=== PATIENT | female | born 1950 | race Caucasian/White ===

== ENCOUNTER 2016-05-01 09:25 | Day surgery (SDC) | payer OTHER ==
[~2016-05-01 09:25] MED LIST: ceFAZolin 2 GM/DEXTROSE 100 ML IV ONE
[2016-05-01] MEDS ORDERED: BUPIVACAINE/EPI 0.5% 30 ML SDV ONE (10:05)
[2016-05-01] MEDS ORDERED: SODIUM BICARBONATE 10 MEQ/10 ML SYR IVP ONE (10:16)
[2016-05-01] MEDS ORDERED: LIDOCAINE 1% 30 ML SDV ONE (10:16)
[2016-05-01] MEDS ORDERED: CEFAZOLIN 2 GM/DEXTROSE/100 ML BAG IV ONE (10:20)
[2016-05-01] MEDS ORDERED: LR 1,000 ML IV ONE (10:35)
[2016-05-01] MEDS ORDERED: LIDOCAINE 1% 5 ML SDV ID PRN (10:35)
[2016-05-01] MEDS ORDERED: PROPOFOL 200 MG/20 ML VIAL ONE (10:40)
[2016-05-01] MEDS ORDERED: DEXAMETHASONE 4 MG/ML VIAL ONE (10:40)
[2016-05-01] MEDS ORDERED: fentaNYL 250 MCG/5 ML INJ ONE (10:40)
[2016-05-01] MEDS ORDERED: ONDANSETRON 4 MG/2 ML VIAL ONE (10:40)
[2016-05-01] MEDS ORDERED: ROCURONIUM 50 MG/5 ML VIAL ONE (10:40)
[2016-05-01] MEDS ORDERED: MIDAZOLAM 2 MG/2 ML VIAL ONE (10:50)
[2016-05-01] MEDS ORDERED: NEOSTIGMINE METHYLSULFATE 5 MG/5 ML SYR ONE (11:31)
[2016-05-01] MEDS ORDERED: GLYCOPYRROLATE 0.2 MG/1 ML VIAL ONE (11:31)
[2016-05-01] MEDS ORDERED: SKIN ADHESIVE (DERMABOND) 1 EACH TP ONE ×2 (11:52→11:58)
--- NOTE | 2016-05-01 12:15 | GOP ---
[f rep st] OPERATIVE REPORT DATE OF OPERATION: SURGEON: Rut Gonzalez MD PREOPERATIVE DIAGNOSIS: Left breast cancer. POSTOPERATIVE DIAGNOSIS: Left breast cancer. PROCEDURE PERFORMED: Re-excision of anterior margin of the left breast. FINDINGS: Approximately 30 cc of serosanguineous fluid in the lumpectomy cavity. SPECIMENS: Left breast anterior margin. ESTIMATED BLOOD LOSS: Estimated new blood loss less than 5 mL. INDICATIONS: The patient is a 66-year-old woman with a left breast cancer who was found to have 1.2 mm anterior margin to the DCIS. She desired re-excision of margins for possible partial breast irrad iation therapy. DESCRIPTION OF PROCEDURE: After informed consent was obtained and preoperative antibiotics were admi nistered, the patient was taken to the operating room, placed in a supine position. SCDs were placed to bilateral lower extremities. General anesthesia was administered. She was prepped and draped in a sterile fashion. After an appropriate surgical pause, local anesthetic was injected in a circumar eolar fashion around the prior incision and the circumareolar incision was excised in an elliptical f ashion using a 15 blade. About 30 cc of old serosanguineous fluid was suctioned from the lumpectomy cavity. Additional anterior breast tissue was excised and marked with the paint kit prior to sending this to Pathology for review. Hemostasis was achieved using Bovie electrocautery. The breast tissu e was reapproximated using 3-0 Vicryl suture. The skin was closed in 2 layers using 4-0 Monocryl sut ure. Mastisol, Steri-Strips, and a dry dressing were placed. Prior to skin closure, note 3 addition al gold fiducials were placed to louis the lumpectomy cavity. Once the patient is awakened from general anesthesia, she will be extubated and taken to the post ane sthesia recovery unit. /[id number]/MODL
[2016-05-01] MEDS ORDERED: HYDROCODONE/APAP 5/325 TAB ONE (13:15)
[2016-05-01] MEDS ORDERED: HYDROCODONE/APAP 5/325 TAB PO PRN (13:18)
== END 2016-05-01 14:51 | disposition home or self-care (01) ==
LOC: FSGY 09:25
PROVIDERS: ATTEND Surgery
PROC: 0HBU0ZX Excision of Left Breast, Open Approach, Diagnostic (ICD-10-PCS; principal; 2016-05-01 10:45)
DX: C50.212 Malignant neoplasm of upper-inner quadrant of left female breast (principal); Z88.2 Allergy status to sulfonamides
CPT/HCPCS: J0690; J1100; J2250; J2405; J2704; J2710; J3010

== ENCOUNTER → 2016-07-25 | Outpatient (CLI) | payer OTHER | LOC: BMCIMAGING 12:31 | PROVIDERS: ATTEND Internal Medicine | DX: R22.42 Localized swelling, mass and lump, left lower limb (principal); Z85.3 Personal history of malignant neoplasm of breast ==

== ENCOUNTER → 2016-11-12 | Outpatient (CLI) | payer OTHER, MEDICARE | LOC: BMCIMAGING 13:01 | PROVIDERS: ATTEND Internal Medicine | DX: R91.8 Other nonspecific abnormal finding of lung field (principal); R91.1 Solitary pulmonary nodule; R53.83 Other fatigue ==

== ENCOUNTER → 2016-11-13 | Outpatient (CLI) | payer OTHER, MEDICARE ==
[~2016-11-13] MED LIST changes: +IOPAMIDOL (ISOVUE-300) 100 ML BTL ONE; -ceFAZolin 2 GM/DEXTROSE 100 ML IV ONE
== END ==
LOC: FIMAGING 10:54
PROVIDERS: ATTEND Internal Medicine
DX: R91.8 Other nonspecific abnormal finding of lung field (principal); J18.9 Pneumonia, unspecified organism
CPT/HCPCS: 71260; Q9967

== ENCOUNTER → 2016-12-02 | Outpatient (CLI) | payer OTHER, MEDICARE | LOC: FIMAGING 09:40 | PROVIDERS: ATTEND Internal Medicine Hematology & Oncology | DX: N63 Unspecified lump in breast (principal); Z85.3 Personal history of malignant neoplasm of breast; Z17.0 Estrogen receptor positive status [ER+]; Z92.3 Personal history of irradiation | CPT/HCPCS: G0202; G0204 ==

== ENCOUNTER → 2016-12-26 | Outpatient (CLI) | payer OTHER, MEDICARE | LOC: BMCIMAGING 15:24 | PROVIDERS: ATTEND Internal Medicine | DX: J18.9 Pneumonia, unspecified organism (principal); Z85.3 Personal history of malignant neoplasm of breast ==

== ENCOUNTER → 2017-01-08 | Outpatient (CLI) | payer OTHER, MEDICARE | LOC: BMCIMAGING 13:49 | PROVIDERS: ATTEND Internal Medicine | DX: R91.8 Other nonspecific abnormal finding of lung field (principal); R05 Cough ==

== ENCOUNTER 2017-01-10 13:10 | Inpatient (IN) | payer OTHER, MEDICARE ==
[2017-01-10 14:33] LABS: % IMMATURE GRANULYOCYTES 0.6 % (0.0-1.1); ABSOLUTE IMMATURE GRANULOCYTES 0.08 10^3/uL (0.00-0.10); ADD DIFF? NO; ADD MORPH? NO; ADD SCAN? NO; ATYPICAL LYMPHOCYTE FLAG 0 (0-99); FRAGMENT RBC FLAG 0 (0-99); HEMATOCRIT 38.5 % (38.0-47.0); HEMOGLOBIN 12.3 g/dL (12.6-16.3); LEFT SHIFT FLG 0 (0-99); LIPEMIA HEMOLYSIS FLAG 80 (0-99); MEAN CELL HEMOGLOBIN 26.7 pg (27.9-34.1); MEAN CELL HEMOGLOBIN CONCENTR. 31.9 g/dL (32.4-36.7); MEAN CELL VOLUME 83.5 fL (81.5-99.8); MEAN PLATELET VOLUME 8.8 fL (8.7-11.7); PLATELET CLUMPS FLAG 20 (0-99); PLATELET COUNT 474 10^3/uL (150-400); RED BLOOD CELL COUNT 4.61 10^6/uL (4.18-5.33); RED CELL DISTRIBUTION WIDTH 14.4 % (11.5-15.2)
[2017-01-10 14:48] LABS: ANION GAP 14 mEq/L (8-16); BILIRUBIN,TOTAL 1.5 mg/dL (0.1-1.4); CARBON DIOXIDE 22 mEq/l (22-31); CHLORIDE 97 mEq/L (97-110); CREATININE 0.9 mg/dL (0.6-1.0); GLOMERULAR FILTRATION RATE > 60; GLUCOSE 110 mg/dL (70-100); POTASSIUM 3.9 mEq/L (3.5-5.2); SODIUM 133 mEq/L (134-144)
[2017-01-10 14:49] LABS: INR 1.11 (0.83-1.16); PROTIME(PATIENT) 14.2 SEC (12.0-15.0)
[2017-01-10 14:56] LABS: APTT 28.7 SEC (23.0-38.0)
--- NOTE | 2017-01-10 15:03 | EDPHY ---
H & P Smoking Status: Never smoked Time Seen by Provider: 01/10/17 14:02 HPI/ROS: CHIEF COMPLAINT: A worsening pneumonia, continued fever HISTORY OF PRESENT ILLNESS: This 66-year-old woman was treated with antibiotics for sinusitis at the end of September. She was treated twice in October with oral antibiotics for pneumonia and received 5 day course of levofloxacin over Labor Day for continued symptoms. She presents today with continued intermittent fever and elevated temperature, sore throat 2 days ago, vomiting 2 days ago with some nausea today. She still has a little nonproductive cough, and worsening shortness of breath especially at night. Not associated with chest pain. No leg swelling. Symptoms moderate. REVIEW OF SYSTEMS: Eye: no change in vision ENT: No sore throat now, see HPI Cardiac: no chest pain or syncope Pulmonary: HPI Abdomen: no vomiting, diarrhea, abdominal pain Musculoskeletal: no back pain Skin: no rash Neuro: no headache Constitutional: Fever and chills and no recent foreign travel to developing country. : no urinary symptoms A comprehensive 10 point review of systems is otherwise negative aside from elements mentioned in the history of present illness. PAST MEDICAL HISTORY: Denies previous tuberculosis. 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 No IV drugs General Appearance: Alert and conversant, cooperative. Eyes: No scleral icterus. ENT, Mouth: Normal mucous membranes. Respiratory: Decreased sounds bilaterally with scattered crackles. Speaks in full sentences. Cardiovascular: Regular rate and rhythm. No murmur. Gastrointestinal: Abdomen is soft and non tender. Neurological: Alert and oriented x3. Normally conversant. Face symmetric, normal movement and sensation in all extremities. Skin: Warm and dry, no rashes. Musculoskeletal: No peripheral edema and no joint swelling. Psychiatric: Not agitated. Emergency Department course/MDM: Chest x-ray reviewed from 01/08/2017 shows bilateral pulmonary infiltrates. She says she lost about 20 lb this calendar year but she was attempting to lose weight. She had a PPD placed 2 years ago which was negative. 1415: The D-dimer 3.4, CT scan discussed and consented to evaluate for any pulmonary embolism or other intrapulmonary abnormality to explain multi lobar infiltrates. Ceftriaxone 1g and Azithromycin 500mg IV. Admission for worsening pulmonary infiltrates and symptoms having failed multiple courses of outpatient antibiotics. Normal saline IV 1 L. Patient has sepsis criteria with elevated white blood cell count and tachycardia but does not have severe sepsis or septic shock. Dr. Joy will followup on CTA. (Lupillo Pruitt) Constitutional: Initial Vital Signs Temperature (C) 37.1 C 01/10/17 13:21 Heart Rate 110 H 01/10/17 13:21 Respiratory Rate 15 01/10/17 13:21 Blood Pressure 160/79 H 01/10/17 13:21 O2 Sat (%) 93 01/10/17 13:21 O2 Delivery Mode Room Air Allergies/Adverse Reactions: ceftriaxone [From Rocephin] Allergy (Verified 01/10/17 16:10) nickel Allergy (Verified 04/30/16 17:21) pollen extracts Allergy (Verified 04/30/16 17:21) Sulfa (Sulfonamide Antibiotics) Allergy (Verified 04/30/16 17:21) Swelling/neck,face,throat Home Medications: Medication Instructions Recorded Albuterol [Proventil Inhaler HFA 1 - 2 puffs IH Q4H PRN 01/10/17 (*)] Calcium Carbonate/Vitamin D3 1 each PO BID 01/10/17 [Calcium 500 + Vit D Caplet] Exemestane [Aromasin 25 MG (RX)] 25 mg PO DAILY8 01/10/17 Ibuprofen [Motrin (*)] 200 mg PO Q4-6PRN PRN 01/10/17 Medical Decision Making Consult/Admit Bed Type: [place] [id number] - Diagnostics Imaging Results: Imaging Impressions Chest/Thorax CTA 01/10/17 15:12 Impression: 1. No evidence of thrombopulmonary embolic disease. 2. Waxing and waning bilateral airspace consolidation. Differential diagnosis includes recurrent aspiration, inflammatory process such as cryptogenic organizing pneumonia or eosinophilic pneumonia, and drug reaction. Differential diagnosis includes bland bronchopneumonia. 3. Decreased size of probably benign reactive AP window lymph nodes since October 2016. Findings discussed with Emergency Department physician, Dr. Rafael Joy on , 1603 hours. Differential Diagnosis: Differential considered for continued intermittent fevers including but not limited to pneumonia, pulmonary embolus, tuberculosis, drug reaction, UTI. (Lupillo Pruitt) Other Provider: I was notified at approximately 4:20pm that the patient was having an apparent reaction to her Rocephin. Her CT was thankfully negative for PE. She was flushed, tachy and developed an increased oxygen requirement. She was treated with IV benadryl ,solumedrol and pepcid, and Rocephin was discontinued. I called and spoke with the hospitalist, Dr. Alonzo, to notify her of this change in condition. She had a bed assigned already, but we held her in the ED for an additional hour or so to stabilize. On re-eval, she is comfortable, no longer flushed, and HR and O2 have normalized. I think she is safe for transport to the floor. (Rafael Joy) - Data Points Laboratory Results: Laboratory Results 01/10/17 14:20 01/10/17 14:20 01/10/17 01/10/17 01/10/17 14:20 14:20 14:20 WBC 12.94 10^3/uL H 10^3/uL (3.80-9.50) RBC 4.61 10^6/uL 10^6/uL (4.18-5.33) Hgb 12.3 g/dL L g/dL (12.6-16.3) Hct 38.5 % % (38.0-47.0) MCV 83.5 fL fL (81.5-99.8) MCH 26.7 pg L pg (27.9-34.1) MCHC 31.9 g/dL L g/dL (32.4-36.7) RDW 14.4 % % (11.5-15.2) Plt Count 474 10^3/uL H 10^3/uL (150-400) MPV 8.8 fL fL (8.7-11.7) Neut % (Auto) 84.1 % H % (39.3-74.2) Lymph % (Auto) 7.2 % L % (15.0-45.0) [place] % (Auto) 5.3 % % (4.5-13.0) Eos % (Auto) 2.4 % % (0.6-7.6) Baso % (Auto) 0.4 % % (0.3-1.7) Nucleat RBC Rel Count 0.0 % % (0.0-0.2) Absolute Neuts (auto) 10.89 10^3/uL H 10^3/uL (1.70-6.50) Absolute Lymphs (auto) 0.93 10^3/uL L 10^3/uL (1.00-3.00) Absolute Monos (auto) 0.68 10^3/uL 10^3/uL (0.30-0.80) Absolute Eos (auto) 0.31 10^3/uL 10^3/uL (0.03-0.40) Absolute Basos (auto) 0.05 10^3/uL 10^3/uL (0.02-0.10) Absolute Nucleated RBC 0.00 10^3/uL 10^3/uL (0-0.01) Immature Gran % 0.6 % % (0.0-1.1) Immature Gran # 0.08 10^3/uL 10^3/uL (0.00-0.10) PT 14.2 SEC SEC (12.0-15.0) INR 1.11 (0.83-1.16) APTT 28.7 SEC SEC (23.0-38.0) D-Dimer 3.41 ug/mLFEU H ug/mLFEU (0.00-0.50) VBG Lactic Acid Sodium 133 mEq/L L mEq/L (134-144) Potassium 3.9 mEq/L mEq/L (3.5-5.2) Chloride 97 mEq/L mEq/L (97-110) Carbon Dioxide 22 mEq/l mEq/l (22-31) Anion Gap 14 mEq/L mEq/L (8-16) BUN 14 mg/dL mg/dL (7-23) Creatinine 0.9 mg/dL mg/dL (0.6-1.0) Estimated GFR > 60 Glucose 110 mg/dL H mg/dL (70-100) Calcium 10.0 mg/dL mg/dL (8.5-10.4) Total Bilirubin 1.5 mg/dL H mg/dL (0.1-1.4) 01/10/17 14:20 WBC RBC Hgb Hct MCV MCH MCHC RDW Plt Count MPV Neut % (Auto) Lymph % (Auto) [place] % (Auto) Eos % (Auto) Baso % (Auto) Nucleat RBC Rel Count Absolute Neuts (auto) Absolute Lymphs (auto) Absolute Monos (auto) Absolute Eos (auto) Absolute Basos (auto) Absolute Nucleated RBC Immature Gran % Immature Gran # PT INR APTT D-Dimer VBG Lactic Acid 1.4 mmol/L mmol/L (0.7-2.1) Sodium Potassium Chloride Carbon Dioxide Anion Gap BUN Creatinine Estimated GFR Glucose Calcium Total Bilirubin Medications Given: Discontinued Medications Diphenhydramine HCl (Benadryl Injection) 25 mg IVP EDNOW ONE Stop: 01/10/17 16:08 Last Admin: 01/10/17 16:09 Dose: 25 mg Diphenhydramine HCl (Benadryl Injection) 25 mg IVP ONCE ONE Stop: 01/10/17 16:36 Last Admin: 01/10/17 16:36 Dose: 25 mg Famotidine (Pepcid) 40 mg IVP EDNOW ONE Stop: 01/10/17 16:35 Last Admin: 01/10/17 16:36 Dose: 40 mg Ceftriaxone Sodium/Dextrose (Rocephin 1 Gm (Premix)) 50 mls @ 100 mls/hr IV EDNOW ONE PRN Reason: Protocol Stop: 01/10/17 15:46 Last Admin: 01/10/17 15:51 Dose: 50 mls Sodium Chloride (Ns) 1,000 mls @ 0 mls/hr IV EDNOW ONE; Wide Open PRN Reason: Protocol Stop: 01/10/17 15:34 Last Admin: 01/10/17 15:51 Dose: 1,000 mls Methylprednisolone Sodium Succinate (Solu-Medrol) 125 mg IVP ONCE ONE Stop: 01/10/17 16:35 Last Admin: 01/10/17 16:36 Dose: 125 mg Departure - Departure Disposition: [facility] Acute Clinical Impression: Pneumonia Qualifiers: Pneumonia type: due to unspecified organism Laterality: bilateral Lung location : unspecified part of lung Qualified Code(s): J18.9 - Pneumonia, unspecified organism Condition: Good
[2017-01-10] MEDS ORDERED: AZITHROMYCIN IV 500 MG in D5W 250 ML IV ONE (15:17)
[2017-01-10] MEDS ORDERED: IOPAMIDOL (ISOVUE 370) 100 ML BTL IV ONE (15:18)
[2017-01-10] MEDS ORDERED: NS 1,000 ML IV ONE (15:33)
[2017-01-10] MEDS ORDERED: FAMOTIDINE 20 MG/2 ML SDV ONE (16:30)
[2017-01-10] MEDS ORDERED: methylPREDNISolone SOD SUCC 125 MG/2 ML VIAL ONE (16:31)
[2017-01-10] MEDS ORDERED: methylPREDNISolone SOD SUCC 125 MG/2 ML VIAL IVP ONE (16:34)
[2017-01-10] MEDS ORDERED: FAMOTIDINE 20 MG/2 ML SDV IVP ONE (16:34)
[2017-01-10] MEDS ORDERED: ONDANSETRON 4 MG/2 ML VIAL IVP PRN (18:08)
[2017-01-10] MEDS ORDERED: ACETAMINOPHEN 325 MG TAB PO PRN (18:08)
[2017-01-10] MEDS ORDERED: ONDANSETRON DISINTEGRATING 4 MG TAB PO PRN (18:08)
[2017-01-10] MEDS ORDERED: oxyCODONE IR 5 MG TAB PO PRN (18:08)
[2017-01-10] MEDS ORDERED: ALBUTEROL 3 ML DEYVIAL IH PRN (18:08)
[2017-01-10] MEDS ORDERED: IBUPROFEN 200 MG TAB PO PRN (18:11)
[2017-01-10] MEDS: CALCIUM CARB W/VIT D 500 MG TAB PO SCH (20:00)
[2017-01-10] MEDS: IPRATROPIUM/ALBUTEROL 3 ML DEYVIAL IH SCH (21:12)
--- NOTE | 2017-01-11 00:12 | GHP ---
[f rep st] HISTORY AND PHYSICAL DATE OF ADMISSION: 01/10/2017 CHIEF COMPLAINT: Shortness of breath and cough. HISTORY OF PRESENT ILLNESS: This is a 66-year-old female with past medical history of breast cancer, who presents with complaints of shortness of breath, cough, and fever. She notes she has been treat ed 3 times since October with antibiotics for presumed pneumonia. She has had multiple chest x-rays whi ch have been notable for bilateral consolidations which have been waxing and waning on recurrent imag ing. Per patient, she has had times when she has felt well but has never felt completely back to [facility] since October. She has been treated with levofloxacin and Augmentin as an outpatient. She states she did not tolerate levofloxacin due to some tendon issue she developed. Here in the ER today she was given a dose of ceftriaxone and shortly thereafter developed some sort of presumably allergic res ponse with patient noted to be flushed, tachy, requiring increased O2, and tachycardic. At the time of my evaluation, patient is feeling relatively back to her baseline. PAST MEDICAL HISTORY: Includes: 1. Breast cancer. 2. Pneumonia as per History of Present Illness. PAST SURGICAL HISTORY: Lumpectomy. FAMILY HISTORY: Reviewed and noncontributory. SOCIAL HISTORY: The patient lives independently. She is generally very active at baseline. States she usually walks 5 miles per day. She is a nonsmoker. Rare drinker. REVIEW OF SYSTEMS: A 10-point review of systems obtained negative except as per History of Present I llness. HOME MEDICATIONS: 1. Ibuprofen. 2. Aromasin. 3. Calcium. 4. Albuterol. ALLERGIES: Sulfa and now ceftriaxone. PHYSICAL EXAM: VITAL SIGNS: BP 123/78, heart rate 86, respiratory rate 16, O2 SATs 95% on 2 L. Tem perature is 36.7. GENERAL APPEARANCE: Well-developed/well-nourished female. She is awake and alert . She is in no acute distress. EYES: Anicteric. HENT: Oropharynx clear. CARDIOVASCULAR: Regula r rate and rhythm, no MRG. PULMONARY: There are scattered rhonchi and wheezes bilaterally with norm al work of breathing. ABDOMEN: Soft, nontender, nondistended. EXTREMITIES: No clubbing, cyanosis, or edema. SKIN: Warm dry well perfused. NEURO/PSYCH: Oriented and appropriate. CLINICAL DATA: Labs reviewed and notable for a white blood cell count of 12.94, hematocrit of 38, pl atelets of 474. D-dimer is 3.41. Lactic acid 1.4. Chemistry notable for sodium of 133. Chest CT angiogram personally reviewed and interpreted shows no PE. There is waxing and waning bilat eral airspace consolidation consistent with possible aspiration versus inflammatory process such as c ryptogenic organizing pneumonia or eosinophilic pneumonia and decreased size of lymph nodes that were noticed back in October. ASSESSMENT AND PLAN: This is a 66-year-old female with a past medical history of breast cancer, now being admitted for presumed recurrent pneumonia. 1. Pneumonia. Again, this is been recurrent since October with imaging showing waxing and waning bilat eral infiltrates. Some areas are noted to be improved from prior, others worse from prior. Definite ly atypical in appearance. Query recurrent aspiration though patient denies any knowledge of aspirat ing. Plan will be to continue the azithromycin, ceftriaxone has been stopped due to presumed allergi c response. We will obtain a respiratory pathogen panel. Will ask CUSTOMS COMPLIANCE MANAGER to evaluate for signs of aspi ration. Will also consult Infectious Disease for help given her recurrent issues and sort of indolen t process with this. She may require pulmonary consultation and even bronchoscopy, but this perhaps could be arranged as an outpatient. 2. Acute hypoxic respiratory failure. The patient has been noted to be as low as 90% on room air wi th associated shortness of breath in the setting of above. She is saturating quite well now on low-f low supplemental O2. 3. History of breast cancer. Do not feel this is likely contributing to her acute presentation. Th ere is nothing to suggest malignancy contributing to her pulmonary process. Prominent lymph nodes no jay before have now decreased in size. 4. Allergic response to ceftriaxone. Again, this occurred in the emergency department and her sympt oms have completely resolved. Unclear if this was a true allergy versus adverse reaction, but regard less this will be listed as an allergy from now on. DISPOSITION: Observation status, especially less than 48 hour stay for evaluation and management of above. The patient is new to my care. Old records reviewed, summarized as per HPI and past medical history. Care plan reviewed with ER physician, including plans for treatment of presumed recurrent pneumonia . /[id number]/MODL
[2017-01-11] MEDS: IPRATROPIUM/ALBUTEROL 3 ML DEYVIAL IH SCH ×3 (06:10→17:20)
[2017-01-11 07:47] LABS: % IMMATURE GRANULYOCYTES 0.7 % (0.0-1.1); ABSOLUTE IMMATURE GRANULOCYTES 0.08 10^3/uL (0.00-0.10); ADD DIFF? NO; ADD MORPH? NO; ADD SCAN? NO; ATYPICAL LYMPHOCYTE FLAG 10 (0-99); FRAGMENT RBC FLAG 0 (0-99); HEMATOCRIT 35.1 % (38.0-47.0); HEMOGLOBIN 11.4 g/dL (12.6-16.3); LEFT SHIFT FLG 0 (0-99); LIPEMIA HEMOLYSIS FLAG 80 (0-99); MEAN CELL HEMOGLOBIN 27.1 pg (27.9-34.1); MEAN CELL HEMOGLOBIN CONCENTR. 32.5 g/dL (32.4-36.7); MEAN CELL VOLUME 83.4 fL (81.5-99.8); PLATELET CLUMPS FLAG 0 (0-99); PLATELET COUNT 468 10^3/uL (150-400); RED BLOOD CELL COUNT 4.21 10^6/uL (4.18-5.33); RED CELL DISTRIBUTION WIDTH 14.5 % (11.5-15.2)
[2017-01-11 08:00] LABS: ALANINE AMINOTRANSFERASE 78 IU/L (9-52); ALKALINE PHOSPHATASE 271 IU/L (38-126); ANION GAP 16 mEq/L (8-16); ASPARTATE AMINOTRANSFERASE 39 IU/L (14-46); BILIRUBIN,TOTAL 0.6 mg/dL (0.1-1.4); CALCIUM 9.5 mg/dL (8.5-10.4); CARBON DIOXIDE 19 mEq/l (22-31); CHLORIDE 104 mEq/L (97-110); CREATININE 0.7 mg/dL (0.6-1.0); GLOMERULAR FILTRATION RATE > 60; GLUCOSE 163 mg/dL (70-100); SODIUM 139 mEq/L (134-144); TOTAL PROTEIN 6.3 g/dL (6.3-8.2)
[2017-01-11] MEDS ORDERED: EXEMESTANE 25 MG TAB PO SCH (08:00)
[2017-01-11] MEDS: CALCIUM CARB W/VIT D 500 MG TAB PO SCH ×2 (08:44→20:02)
[2017-01-11] MEDS ORDERED: AZITHROMYCIN IV 500 MG in D5W 250 ML IV SCH (09:00)
[2017-01-11] MEDS ORDERED: ENOXAPARIN 40 MG/0.4 ML SYR SC SCH (09:00)
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
--- NOTE | 2017-01-11 13:37 | ASMTCMCOM ---
CM Note CM Note Notes: Pt's DC needs are TBD. Awaiting an ID consult. C/M will continue to follow. Date Signed: 01/11/2017 01:36 PM Electronically Signed By:Qing Melissa LCSW
--- NOTE | 2017-01-11 17:35 | HOSPPROG ---
Hospitalist Progress Note Assessment/Plan: * Waxing and waning pulmonary infiltrates -most c/w SENIOR CREDIT ANALYST or eosinophilic PNA -need bronch with biopsy - d/w Dr. Terry -extended infectious w/u per Dr Fish - abx stopped * Acute respiratory failure -stable on O2 * Ceftriaxone allergic rx - early anaphylaxis -s/p emergent tx in ER * Breast cancer -recent tx Subjective: No new complaints Objective: Vital Signs Temp Pulse Resp BP Pulse Ox 36.8 C 83 16 123/71 H 95 01/11/17 16:00 01/11/17 16:00 01/11/17 16:00 01/11/17 16:00 01/11/17 16:00 Microbiology 01/11/17 05:30 Respiratory Panel (PCR) - Final Nasal, Sinus - Swab No Organism Detected Laboratory Results 01/11/17 07:13 01/11/17 07:13 01/10/17 01/11/17 01/12/17 05:59 05:59 05:59 Intake Total 550 1030 Output Total 1050 Balance -500 1030 PT 14.2 SEC (12.0-15.0) 01/10/17 14:20 INR 1.11 (0.83-1.16) 01/10/17 14:20 CT chest - waxing and waning pulmonary infiltrates - Physical Exam Constitutional: no apparent distress, appears nourished, not in pain Cardiovascular: regular rate and rhythym, no murmur, rub, or gallop Respiratory: no respiratory distress, no rales or rhonchi, clear to auscultation Gastrointestinal: normoactive bowel sounds, soft, non-tender abdomen, no palpable masses Skin: no rashes or abrasions, no fluctuance, no induration Neurologic: AAOx3, sensation intact bilaterally Psychiatric: interacting appropriately, not anxious, not encephalopathic, thought process linear ICD10 Worksheet Patient Problems: Problems Problem Status Onset Pneumonia Acute
--- NOTE | 2017-01-11 17:43 | GCON ---
[f rep st] CONSULTATION PULMONARY/CRITICAL CARE DATE OF CONSULTATION: 01/11/2017 REFERRING PHYSICIAN: Antonella Marie MD ADDITIONAL REFERRING: Isabela Fish MD. REASON FOR REFERRAL: Evaluation and management of chronic pneumonia. HISTORY OF PRESENT ILLNESS: The patient is a 66-year-old woman with a history of breast cancer that was diagnosed in 2015. She denies any respiratory history until August of 2016, at which time she was e xposed to a sick contact and developed cold symptoms. This was followed by symptoms that were felt t o be due to sinusitis. Treated with an antibiotic. She then was subsequently diagnosed with pneumon ia in October and then given 2 weeks of antibiotics. She felt she improved with those, but was continui ng to have some shortness of breath. She then took a course of Levaquin, also with some improvement in her symptoms. Several days ago, she started to develop low-grade fevers to 101 as well as increas ing shortness of breath. A chest x-ray and laboratory evaluations suggested pneumonia, so she presen jay to the emergency department. She has been treated with ceftriaxone and azithromycin, but develop ed an allergic reaction to ceftriaxone, so that was stopped. She currently reports that her breathin g feels better since admission, but she has attributes that to the oxygen more so than the azithromyc in. PAST MEDICAL HISTORY: Breast cancer, diagnosed 9 months ago. She underwent surgery including a seco nd surgery to get better margins. She then underwent followup radiation. She was then placed on an aromatase inhibitor. MEDICATIONS: At the time of admission include exemestane, Proventil, and Motrin. ALLERGIES: Ceftriaxone, nickel, pollen, and sulfa. SOCIAL HISTORY: She grew up in [place] but has lived in [place] for over almost 40 years. She de nies exposure to animals recently, but did have an exposure to some and decaying animals in 2016 . FAMILY HISTORY: Unremarkable. REVIEW OF SYSTEMS: A 10-point review of systems adds nothing to the history of present illness. PHYSICAL EXAMINATION: GENERAL: The patient is awake, alert, in no acute distress. VITALS: Blood p ressure is 123/71 with a heart rate of 83. She is afebrile. Oxygen saturations are 95% on 2 L. WAYLON NT: Normocephalic and atraumatic. No icterus. NECK: No JVD. Trachea is midline. CHEST: She has bilateral rales. CARDIAC: Regular rate and rhythm without murmur. ABDOMEN: Soft, nontender. [place] el sounds are present. EXTREMITIES: No clubbing, cyanosis, or edema. NEURO: The patient is awake and alert. Cranial nerves grossly intact. She has no gross motor or sensory deficits. LABORATORY: White blood count 11.1. She has zero percent eosinophils. Hemoglobin is 11.4, platelet count is 468. INR is 1.1. Chemistry group is unremarkable. A CT scan of the chest shows bilateral patchy consolidation. Compared to a CT scan done on November 13, areas of consolidation seen on the jacqueline or CT scan have completely resolved and the currently seen areas are new. ASSESSMENT: Bilateral pneumonia. The patient has had symptoms and radiographic findings for approxi mately 2 months. These have persisted despite several courses of outpatient antibiotics. The migrat ory nature of these infiltrates makes noninfectious causes such as cryptogenic organizing pneumonia o r an eosinophilic pneumonia more likely. I had a long discussion with the patient and her re garding options, which could include getting more serologies to exclude some infectious causes and th en treating empirically with steroids, adding a BAL to the serologies, and then if that remains negat linda proceeding with an empiric course of steroids, or doing a bronchoscopy with BAL and biopsies in a n attempt to get a more conclusive diagnosis. I reviewed the risks and benefits of bronchoscopy, whi ch include pneumothorax and bleeding from the biopsies. It is also possible that we will not get a d efinitive diagnosis and we will have to proceed to video-assisted thoracoscopic surgery if a definiti ve diagnosis is to be pursued. I also reviewed the side effects, the risks and benefits of steroids, both as an empiric treatment and also as a more definitive treatment for a diagnosed noninfectious p neumonia. They understand and are willing to proceed with bronchoscopy with biopsies to try to get a more definitive diagnosis. RECOMMENDATIONS: N.p.oVijay grant for the bronchoscopy with biopsies and BAL tomorrow. Agree with hol ding antibiotics. /[id number]/MODL
[2017-01-11] MEDS ORDERED: ALBUTEROL IH PRN (20:13)
[2017-01-12] MEDS: EXEMESTANE 25 MG TAB PO SCH ×3 (08:06→15:41)
[2017-01-12] MEDS: CALCIUM CARB W/VIT D 500 MG TAB PO SCH ×3 (08:06→15:50)
[2017-01-12] MEDS ORDERED: MIDAZOLAM 2 MG/2 ML VIAL ONE (10:45)
[2017-01-12] MEDS ORDERED: BENZOCAINE UNIT DOSE SPRAY HURRICAINE MM ONE (10:45)
[2017-01-12] MEDS ORDERED: fentaNYL 100 MCG/2 ML INJ ONE (10:45)
[2017-01-12] MEDS ORDERED: EPINEPHrine 1 MG/10 ML SYR IVP ONE (10:45)
[2017-01-12] MEDS ORDERED: ALBUTEROL 3 ML DEYVIAL ONE (10:46)
[2017-01-12] MEDS ORDERED: LIDOCAINE 2% JELLY 5 ML TUBE ONE (10:46)
[2017-01-12] MEDS ORDERED: LIDOCAINE 1% 300 MG/30 ML SDV ONE ×2 (10:59→11:17)
--- NOTE | 2017-01-12 11:11 | PCMIDPN ---
Assessment/Plan: # Chronic PNA with migratory infiltrates failed multiple outpatient antibiotic regimens- most c/o COOP vs eosinophilic pneumonitis, BAL today with biopsy --may need home O2, notified case management --AFB, fungal, standard bacterial cx with bronch today likely followed by empiric steroids --ID to follow peripherally, no ID follow up needed --continue off antibiotics Subjective: patient feeling the same today Objective: Vital Signs Temp Pulse Resp BP Pulse Ox 36.6 C 70 16 144/79 H 95 01/12/17 08:09 01/12/17 08:09 01/12/17 08:09 01/12/17 08:09 01/12/17 08:09 Microbiology 01/11/17 05:30 Respiratory Panel (PCR) - Final Nasal, Sinus - Swab No Organism Detected Laboratory Results 01/11/17 07:13 01/11/17 07:13 01/11/17 01/12/17 01/13/17 05:59 05:59 05:59 Intake Total 550 1030 Output Total 1050 1150 Balance -500 -120 - Physical Exam General Appearance: WD/WN, alert, no apparent distress EENT: No thrush, No dry mucous membranes Respiratory: crackles, No accessory muscle use, No wheezing Neck: supple Cardiac/Chest: regular rate, rhythm, No systolic murmur Extremities: No pedal edema Skin: No rash Neuro/Psych: alert, oriented x 3, other (tearful) - Time Spent With Patient Time Spent with Patient: greater than 25 minutes (care coordination with Dr. Terry and Dr Solomon) Time Spent with Patient: Greater than 25 minutes spent on this patients care, greater than 50% of time spent counseling, educating, and coordinating care regarding the above mentioned plan. ICD10 Worksheet Patient Problems: Problems Problem Status Onset Pneumonia Acute
--- NOTE | 2017-01-12 12:37 | ASMTCMCOM ---
CM Note CM Note Notes: Case Management unable to give patient Pastor letter at 11:30. Patient had gone to get a bronc. will attempt after lunch. Date Signed: 01/12/2017 12:36 PM Electronically Signed By:Neha Hansen LCSW
--- NOTE | 2017-01-12 12:44 | PDINTPN ---
[facility] Progress Note Assessment/Plan: Assessment: Pneumonia: Chronic, migratory infiltrates. Evaluation for infectious causes negative to date. Serology is pending. Suspect cryptogenic organizing pneumonia or eosinophilic pneumonia. Breast cancer: Status post radiation and currently on aromatase inhibitor Plan: Bronch with BAL and TTLBx, then start PO steroids. 01/12/17 12:43 Subjective: Feels about the same, no new problems. Objective: Vital Signs Temp Pulse Resp BP Pulse Ox 36.6 C 80 26 H 118/70 93 01/12/17 11:43 01/12/17 11:43 01/12/17 12:21 01/12/17 12:21 01/12/17 12:21 Microbiology 01/11/17 05:30 Respiratory Panel (PCR) - Final Nasal, Sinus - Swab No Organism Detected Laboratory Results 01/11/17 07:13 01/11/17 07:13 01/11/17 01/12/17 01/13/17 05:59 05:59 05:59 Intake Total 550 1030 Output Total 1050 1150 Balance -500 -120 PT 14.2 SEC (12.0-15.0) 01/10/17 14:20 INR 1.11 (0.83-1.16) 01/10/17 14:20 Physical Exam - Physical Exam General Appearance: alert, no apparent distress EENT: normal ENT inspection Neck: normal inspection Respiratory: rales Cardiac/Chest: regular rate, rhythm, No edema Abdomen: normal bowel sounds, non-tender, soft Skin: normal color, warm/dry Extremities: normal inspection Neuro/Psych: alert, normal mood/affect, oriented x 3 ICD10 Worksheet Patient Problems: Problems Problem Status Onset Pneumonia Acute
[2017-01-12] MEDS: predniSONE 20 MG TAB PO SCH (13:27)
--- NOTE | 2017-01-12 14:32 | ASMTCMCOM ---
CM Note CM Note Notes: Spoke to patient and her . They were told by her family physician that she needed to go to the ER for treatment of her fever. In ER they were told that she would be admitted as an "In-Patient". Dr Solomon made her "in-patient" status as of this afternoon. Patient did sign the Pastor letter. Patient might need O2 at home. She will be discharged Friday. Date Signed: 01/12/2017 02:32 PM Electronically Signed By:Neha Hansen LCSW
--- NOTE | 2017-01-12 14:41 | BVPULMO ---
[facility] Surgical Services- Pulmonology Patient Name: Yulisa Arias Procedure Date: 01/12/2017 10:41 AM Patient Type: Inpatient Attending MD/ER Physician: Layton Terry MD Procedure: Bronchoscopy Indications: Unresolving bilateral infiltrates Providers: Layton Terry MD Medicines: Lidocaine 1% applied to cords 2 mL, Lidocaine 1% applied to the tracheobronchial tree 5 mL, Fentanyl 200 mcg IV, Midazolam 4 mg IV Complications: No immediate complications Procedure: After informed consent, a time out was performed. N95 masks were worn, and the procedure was done in a negative pressure room. The patient was given appropriate topical anesthesia and intravenous sedation. The fiberopic bronchoscope was passed via a bite block orally into the larynx and subsequently into the lower trachea bronchial tree. Throughout the procedure, the patient's blood pressure, pulse, and oxygen saturations were monitored continuously. The Bronchoscope (Video) was introduced through the mouth and advanced to the tracheobronchial tree of both lungs. The procedure was accomplished without difficulty. The patient tolerated the procedure well. Findings: Specific locations: The following were directly visualized, and are normal: larynx, vocal cord motion, trachea, cyndy, left mainstem bronchus, right mainstem bronchus, bronchus intermedius, left upper lobe including subsegments,left lower lobe including subsegments, right upper lobe including subsegments, right middle lobe including subsegments, right lower lober including subsegments. Transbronchial biopsies of an area of infiltration were performed in the posterior segment of the right upper lobe and in the superior segment of the right lower lobe using forceps and sent for histopathology examination. The procedure was guided by fluoroscopy. Biopsy of lung tissue was obtained. Four biopsy passes were performed. Four biopsy samples were obtained. There was a moderate amount of bleeding from the right upper lobe posterior segment which stopped after suction and observation for approximately 3 minutes. Washings were obtained and sent for cell count, bacterial culture, and fungal & AFB analysis and cell count and differential. The return was cloudy. Post Op Diagnosis: - Unresolving bilateral infiltrates - No specimens collected. Estimated Blood Loss: Estimated blood loss: 15 mL. Recommendation: - Return patient to [facility] for ongoing care. Layton Terry MD Layton Terry MD 01/12/2017 2:41:33 PM Number of Addenda: 0 Note Initiated On: 01/12/2017 10:41 AM [email or web address]
--- NOTE | 2017-01-12 16:37 | HOSPPROG ---
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 Terry -monitor cultures from bronch - continue off antibiotics * Acute respiratory failure -stable on O2 * Ceftriaxone allergic rx - early anaphylaxis -s/p emergent tx in ER * Breast cancer -continue Aromasin Dispo - home in am if doing okay Subjective: Feeling okay. Worried about reacting to prednisone as she has reacted poorly to so many meds in the past. Objective: Vital Signs Temp Pulse Resp BP Pulse Ox 36.5 C 87 16 113/69 92 01/12/17 15:51 01/12/17 15:51 01/12/17 15:51 01/12/17 15:51 01/12/17 15:51 Microbiology 01/12/17 12:00 Gram Stain - Final Lung Bilateral - Bronch [facility] Laboratory Results 01/11/17 07:13 01/11/17 07:13 01/11/17 01/12/17 01/13/17 05:59 05:59 05:59 Intake Total 550 1030 Output Total 1050 1150 Balance -500 -120 PT 14.2 SEC (12.0-15.0) 01/10/17 14:20 INR 1.11 (0.83-1.16) 01/10/17 14:20 d/w Dr. Fish - home in am if cultures from bronch okay CXR viewed, my personal interpretation is - patch bilateral infiltrates, no PTX - Physical Exam Constitutional: no apparent distress, appears nourished, not in pain Cardiovascular: regular rate and rhythym, no murmur, rub, or gallop Respiratory: no respiratory distress, no rales or rhonchi, clear to auscultation Gastrointestinal: normoactive bowel sounds, soft, non-tender abdomen, no palpable masses Skin: no rashes or abrasions, no fluctuance, no induration Neurologic: AAOx3, sensation intact bilaterally Psychiatric: interacting appropriately, not anxious, not encephalopathic, thought process linear ICD10 Worksheet Patient Problems: Problems Problem Status Onset Pneumonia Acute
[2017-01-13 05:32] LABS: % IMMATURE GRANULYOCYTES 0.5 % (0.0-1.1); ABSOLUTE IMMATURE GRANULOCYTES 0.06 10^3/uL (0.00-0.10); ADD DIFF? NO; ADD MORPH? NO; ADD SCAN? NO; ATYPICAL LYMPHOCYTE FLAG 10 (0-99); FRAGMENT RBC FLAG 0 (0-99); HEMATOCRIT 31.5 % (38.0-47.0); HEMOGLOBIN 9.8 g/dL (12.6-16.3); LEFT SHIFT FLG 0 (0-99); LIPEMIA HEMOLYSIS FLAG 80 (0-99); MEAN CELL HEMOGLOBIN 26.6 pg (27.9-34.1); MEAN CELL HEMOGLOBIN CONCENTR. 31.1 g/dL (32.4-36.7); MEAN CELL VOLUME 85.6 fL (81.5-99.8); MEAN PLATELET VOLUME 8.9 fL (8.7-11.7); PLATELET CLUMPS FLAG 20 (0-99); PLATELET COUNT 394 10^3/uL (150-400); RED BLOOD CELL COUNT 3.68 10^6/uL (4.18-5.33); RED CELL DISTRIBUTION WIDTH 14.5 % (11.5-15.2)
[2017-01-13 08:06] VITALS: RESP 18
[2017-01-13] MEDS: EXEMESTANE 25 MG TAB PO SCH (08:33)
[2017-01-13] MEDS: CALCIUM CARB W/VIT D 500 MG TAB PO SCH ×2 (08:34→08:37)
[2017-01-13] MEDS: predniSONE 20 MG TAB PO SCH (08:34)
[2017-01-13] MEDS ORDERED: VITAMIN D3 PO SCH (09:00)
[2017-01-13] MEDS ORDERED: CALCIUM CARBONATE PO SCH (09:00)
[2017-01-13 12:02] VITALS: BP 138/82; PULSE 61; TEMP 98.4; O2SAT 98
--- NOTE | 2017-01-13 13:45 | PDHOMEO2F ---
Home Oxygen Face to Face Home Orders: I certify that a physician or a nurse practitioner or physician's retail administrative assistant has had a [id number] encounter with this patient on the date of this order due to the diagnosis listed, which relates to the primary reason the patient requires home oxygen. Alternative treatments have been tried, or considered, and deemed ineffective. It is anticipated that supplemental oxygen will result in improvement with treatment. Home oxygen qualifying diagnosis: hypoxia, pneumonia SpO2 on room air (%): 88 Frequency of home oxygen needed: continuous Home oxygen liters per minute: 2 Home oxygen delivery device: nasal cannula Concentrator: Yes E-tanks for mobility and back up: Yes If ordering portable O2, is the patient mobile in the home?: Yes I certify that, based on these findings, the home oxygen is medically necessary for this patient for the following length of time. Length of time home oxygen needed: 1 month (perhaps longer depending upon eval with pulmonary medicine)
--- NOTE | 2017-01-13 22:00 | GDS ---
[f rep st] DISCHARGE SUMMARY SERVICE: [facility] hospitalist. CONSULTATIONS: 1. Infectious Disease. 2. Pulmonary medicine. PROCEDURES: 1. CT chest. 2. Chest x-ray. 3. Bronchoscopy. HISTORY AND PHYSICAL: Please see previously dictated note by Dr. Alonzo. ADMITTING DIAGNOSES: 1. Recurrent/chronic pneumonia. 2. Acute hypoxic respiratory failure. 3. History of breast cancer. 4. Allergic reaction to ceftriaxone. DISCHARGE DIAGNOSES: 1. Recurrent/chronic pneumonia. Possible cryptogenic organizing pneumonia versus eosinophilic pneum onia. 2. Acute hypoxic respiratory failure. 3. History of breast cancer. 4. Allergic reaction to ceftriaxone. HOSPITAL COURSE BY PROBLEM LIST: 1. Chronic recurrent pneumonia. She came into the emergency department for evaluation after multipl e courses of outpatient antibiotic treatments and ongoing issues with ongoing issues. CT scan was do ne to ensure no pulmonary embolism. Findings suggested cryptogenic organizing pneumonia versus eosin ophilic pneumonia. Infectious Disease and Pulmonary Medicine consults were requested. Both speciali sts agreed with steroid treatment and discontinue antibiotics. Dr. Terry also recommended a bronchos copy which was performed on 01/12/2017 (please see separately dictated note). Multiple biopsies were done as well as a bronchoscopy wash. She was continued on oxygen and over the course of her stay sy mptomatically felt improved. Initial mycobacterial exam was negative for an acid-fast bacilli. Init ial fungal culture is pending at the time of discharge. Gram stains show pulmonary negative result. Respiratory panel was negative. Blood cultures showed initial negative results. Serum testing was also recommended by Infectious Disease for coccidiosis and histoplasma and these are still pending at time of discharge. As she is symptomatically improving throughout her stay, decision was reached to discharge her to home with home oxygen and steroids orally. She should follow up with Pulmonology i n 10-14 days to re-evaluate, at which time, final reports from bronchoscopy study should be available . If at any time she has a fever, worsening shortness of breath, increased fatigue or other concerns she should return to the emergency department for re-evaluation. 2. History of breast cancer. Primary oncologist is Dr. Avila. No acute issues related to breast cancer were noted during this hospitalization. 3. Reaction to ceftriaxone. She was given ceftriaxone in the emergency department and had tachycard ia and flushing. Rocephin is now listed as an allergy for her and advised her that she should try to avoid of any similar medications also. DISCHARGE MEDICATIONS: She should continue all of her routine home medications and the only addition is prednisone 40 mg daily to be tapered by either her primary care provider, Dr. Ajith Driver, or [facility] specialist. DISCHARGE INSTRUCTIONS: Please see above. She is scheduled to follow up with Dr. Driver within a fe w days and with Dr. Terry within 10-14 days. Copy requested to: Dr. Ajith Driver /[id number]/MODL
--- NOTE | 2017-01-14 09:33 | ASDISCHSUM ---
Discharge Information Plan Status:Home with No Needs Medically Cleared to Leave: Discharge Date:01/13/2017 06:05 PM CM D/C Disposition: ADT D/C Disposition:Home, Routine, Self-Care Projected Discharge Date:01/13/2017 06:05 PM Transportation at D/C: Discharge Delay Reason: Follow-Up Date:01/13/2017 06:05 PM Discharge Slot: Final Diagnosis: Placement Information Patient Contact Information Contact Name:ALFRED Relationship: Address:[address] Work Phone: City:[place] [facility] Phone: State/Zip Code:[place] [address] Email: Financial Information Financial Class: Primary Plan Desc:MEDICARE INPATIENT Primary Plan Number:[id number] Secondary Plan Desc:[employer]/MDR SUPPLEMENT Secondary Plan Number:[id number] Assessment Information BC CM Progress Note CM Note CM Note Notes: Pt's DC needs are TBD. Awaiting an ID consult. C/M will continue to follow. Date Signed: 01/11/2017 01:36 PM Electronically Signed By:Qing Melissa LCSW [facility] CM Progress Note CM Note CM Note Notes: Case Management unable to give patient Pastor letter at 11:30. Patient had gone to get a bronc. will attempt after lunch. Date Signed: 01/12/2017 12:36 PM Electronically Signed By:Neha Hansen LCSW [facility] CM Progress Note CM Note CM Note Notes: Spoke to patient and her . They were told by her family physician that she needed to go to the ER for treatment of her fever. In ER they were told that she would be admitted as an "In-Patient". Dr Solomon made her "in-patient" status as of this afternoon. Patient did sign the Pastor letter. Patient might need O2 at home. She will be discharged Friday. Date Signed: 01/12/2017 02:32 PM Electronically Signed By:Neha Hansen LCSW [facility] CM Progress Note CM Note CM Note Notes: Pt medically stable for d/c, no CM d/c needs identified. Date Signed: 01/14/2017 09:32 AM Electronically Signed By:SARTHAK Stewart Intervention Information Intervention Type:*Incorrect Registration Date of Service:01/11/2017 01:37 PM Patient Type:Observation Staff Member:ANEL Llyod, Ermelinda Hours:0.25 Discipline: Severity:1 (0-1 Hours) Comment:Registered inpatient, admit order writ ten for observation status. Intervention Type:*IM-Signed Date of Service:01/13/2017 04:50 PM Patient Type:Inpatient Staff Member:Shantelle Gayle Hours: Discipline: Severity: Comment:
== END 2017-01-13 18:05 | disposition home or self-care (01) | DRG 166 ==
LOC: INTOOBSV 15:27 → F3N 17:18 → OBSVTOIN 01-12 14:03
PROVIDERS: ADMIT Internal Medicine; ATTEND Internal Medicine
PROC: 0BBF8ZX Excision of Right Lower Lung Lobe, Via Natural or Artificial Opening Endoscopic, Diagnostic (ICD-10-PCS; principal; 2017-01-12 11:30)
PROC: 0BB48ZX Excision of Right Upper Lobe Bronchus, Via Natural or Artificial Opening Endoscopic, Diagnostic (ICD-10-PCS; principal; 2017-01-12 11:30)
PROC: 0BBC8ZX Excision of Right Upper Lung Lobe, Via Natural or Artificial Opening Endoscopic, Diagnostic (ICD-10-PCS; principal; 2017-01-12 11:30)
DX: J18.9 Pneumonia, unspecified organism (principal); J96.01 Acute respiratory failure with hypoxia; T36.1X5A Adverse effect of cephalosporins and other beta-lactam antibiotics, initial encounter; Z85.3 Personal history of malignant neoplasm of breast; Z92.3 Personal history of irradiation
CPT/HCPCS: 86635-90; 87385-90; 92610-GN; 96365; 97161-GP; G0378; G8978-GP-CI; G8979-GP-CI; G8980-GP-CI; G8996-GN-CH; G8997-GN-CH; G8998-GN-CH; J0456; J0696; J1200; J1650; J2250; J3010; Q9967

== ENCOUNTER → 2017-02-02 | Outpatient (CLI) | payer OTHER, MEDICARE | LOC: FIMAGING 14:23 | PROVIDERS: ATTEND Internal Medicine Critical Care Medicine | DX: J84.116 Cryptogenic organizing pneumonia (principal) ==

== ENCOUNTER 2017-02-24 10:26 | Emergency (ER) | payer OTHER, MEDICARE ==
--- NOTE | 2017-02-24 11:05 | CPEKG ---
Heart Rate: 71 RR Interval: 845 P-R Interval: 136 QRSD Interval: 84 QT Interval: 372 QTC Interval: 405 P Wheeler: 79 QRS Wheeler: 75 T Wave Wheeler: 28 EKG Severity - BORDERLINE ECG - EKG Impression: SINUS RHYTHM EKG Impression: PROBABLE LEFT ATRIAL ABNORMALITY Electronically Signed By: Lupillo Pruitt 24-Feb-2017 14:25:21
[2017-02-24 12:04] LABS: PLATELET COUNT 243 10^3/uL (150-400)
--- NOTE | 2017-02-24 12:30 | EDPHY ---
H & P Time Seen by Provider: 02/24/17 11:24 HPI/ROS: CHIEF COMPLAINT: Left-sided chest pain HISTORY OF PRESENT ILLNESS: Patient was admitted by myself on January 12 of this year and ultimately diagnosed with cryptogenic pneumonia. At that time she had a D-dimer of 3.[address] angiography of her chest which showed multi lobar infiltrates but no pulmonary embolism. Tissue presents to me with intermittent left-sided sharp chest pain since Friday last week. Initially was located under her breast and now is located on the lateral chest in the posterior side of her left chest wall. She does not remember any trauma. It does not change when she takes a breath. It is not exertional. Not associated with cough or fever or leg swelling. Symptoms are mild but today she knows her systolic blood pressures in the 150- 170 range she called pulmonology office who requested she come to directly to the emergency department. REVIEW OF SYSTEMS: Eye: no change in vision ENT: no sore throat Cardiac: HPI, no palpitations or syncope Pulmonary: no cough or SOB Abdomen: no vomiting, diarrhea, abdominal pain Musculoskeletal: no back pain Skin: no rash Neuro: no headache Constitutional: no fever : no urinary symptoms A comprehensive 10 point review of systems is otherwise negative aside from elements mentioned in the history of present illness. PAST MEDICAL HISTORY: Cryptogenic pneumonia. Left-sided breast cancer and D and C. Social history: current nonsmoker General Appearance: Alert and conversant, cooperative. Eyes: No scleral icterus. ENT, Mouth: Normal mucous membranes. Respiratory: Normal respiratory effort, breath sounds equal, lungs are clear to auscultation. Speaks in full sentences. Cardiovascular: Regular rate and rhythm. Gastrointestinal: Abdomen is soft and non tender. Neurological: Alert and oriented x3. Normally conversant. Face symmetric, normal movement and sensation in all extremities. Skin: No zoster or other rashes. Musculoskeletal: No calf tenderness. Tender to palpation just under the left breast and posterior to that area on the mid axillary line on left chest wall. Psychiatric: Not agitated. Emergency Department course/MDM: Long discussion had with the patient and her about CT scanning to evaluate for the possibility of pulmonary embolism. I do not think that is the most likely diagnosis. I think a muscular or soft tissue injury or inflammatory process is much more likely. She is adamant that she does not want further radiation or IV contrast. She states that she understands the possibility exists of pulmonary embolism, and we cannot completely exclude that diagnosis without imaging, and delay in diagnosis could be disabling or life- threatening or fatal. I think that given her previous D-dimer 3.4, repeat screening with D-dimer is almost certain to have an elevated level. She would prefer not to undergo further imaging, because of concerns about radiation and contrast affecting her kidneys. Clearly she has capacity to make decisions regarding her care. 1228: Chest x-ray reviewed with the patient. Radiology review is that right lung is improved. Continue current therapy. Return if worsening symptoms. I think that acute coronary syndrome or dissection is unlikely. Smoking Status: Never smoked Constitutional: Initial Vital Signs Temperature (C) 37.1 C 02/24/17 10:39 Heart Rate 87 02/24/17 10:39 Respiratory Rate 18 02/24/17 10:39 Blood Pressure 153/81 H 02/24/17 10:39 O2 Sat (%) 95 02/24/17 10:39 O2 Delivery Mode Room Air Allergies/Adverse Reactions: ceftriaxone [From Rocephin] Allergy (Verified 01/13/17 12:29) Anaphylaxis nickel Allergy (Verified 04/30/16 17:21) pollen extracts Allergy (Verified 04/30/16 17:21) Sulfa (Sulfonamide Antibiotics) Allergy (Verified 04/30/16 17:21) Swelling/neck,face,throat Home Medications: Medication Instructions Recorded Exemestane [Aromasin] 25 mg PO DAILY8 01/10/17 Acetaminophen [Tylenol 325mg (*)] 650 mg PO Q4HRS PRN tab 01/13/17 Calcium Carbonate/Vitamin D3 1 each PO BID 01/13/17 [Calcium 600-Vit D3 800 Tablet] predniSONE 40 mg PO DAILY #20 tablet 01/13/17 Medical Decision Making - Diagnostics EKG Interpretation: 12-lead EKG interpreted by me; official reading is in trace master. My interpretation is sinus rhythm rate 71 with left atrial abnormality and no ischemic changes. Imaging Results: Imaging Impressions Chest X-Ray 02/24/17 11:52 Impression: 1. No new pneumonia or effusion. 2. Near complete resolution of right midlung pneumonia since 3 weeks prior. 3. Minimal linear atelectasis or scarring in the left base. - Data Points Laboratory Results: Laboratory Results 02/24/17 11:15 02/24/17 11:15 02/24/17 02/24/17 11:15 11:15 WBC 9.29 10^3/uL 10^3/uL (3.80-9.50) RBC 5.32 10^6/uL 10^6/uL (4.18-5.33) Hgb 15.2 g/dL g/dL (12.6-16.3) Hct 46.9 % % (38.0-47.0) MCV 88.2 fL fL (81.5-99.8) MCH 28.6 pg pg (27.9-34.1) MCHC 32.4 g/dL g/dL (32.4-36.7) RDW 21.2 % H % (11.5-15.2) Plt Count 243 10^3/uL 10^3/uL (150-400) MPV 9.7 fL fL (8.7-11.7) Neut % (Auto) 61.9 % % (39.3-74.2) Lymph % (Auto) 28.5 % % (15.0-45.0) [place] % (Auto) 7.9 % % (4.5-13.0) Eos % (Auto) 0.8 % % (0.6-7.6) Baso % (Auto) 0.4 % % (0.3-1.7) Nucleat RBC Rel Count 0.0 % % (0.0-0.2) Absolute Neuts (auto) 5.75 10^3/uL 10^3/uL (1.70-6.50) Absolute Lymphs (auto) 2.65 10^3/uL 10^3/uL (1.00-3.00) Absolute Monos (auto) 0.73 10^3/uL 10^3/uL (0.30-0.80) Absolute Eos (auto) 0.07 10^3/uL 10^3/uL (0.03-0.40) Absolute Basos (auto) 0.04 10^3/uL 10^3/uL (0.02-0.10) Absolute Nucleated RBC 0.00 10^3/uL 10^3/uL (0-0.01) Immature Gran % 0.5 % % (0.0-1.1) Immature Gran # 0.05 10^3/uL 10^3/uL (0.00-0.10) Platelet Estimate ADEQUATE (ADEQ) Elliptocytes 1+ H Sodium 142 mEq/L mEq/L (134-144) Potassium 3.7 mEq/L mEq/L (3.5-5.2) Chloride 102 mEq/L mEq/L (97-110) Carbon Dioxide 29 mEq/l mEq/l (22-31) Anion Gap 11 mEq/L mEq/L (8-16) BUN 19 mg/dL mg/dL (7-23) Creatinine 1.0 mg/dL mg/dL (0.6-1.0) Estimated GFR 55 Glucose 87 mg/dL mg/dL (70-100) Calcium 9.9 mg/dL mg/dL (8.5-10.4) Departure - Departure Disposition: Home, Routine, Self-Care Clinical Impression: Chest pain Qualifiers: Chest pain type: unspecified Qualified Code(s): R07.9 - Chest pain, unspecified Condition: Good Instructions: Chest Pain (ED) Additional Instructions: Return for worsening chest pain, fever, fainting, or shortness of breath. Referrals: Ajith Driver MD [Primary Care Provider] - As per Instructions
[2017-02-24 12:39] VITALS: BP 142/72; PULSE 55; RESP 16; TEMP 97.9; O2SAT 96
== END 2017-02-24 12:38 | disposition home or self-care (01) ==
DX: R07.9 Chest pain, unspecified (principal); Z85.3 Personal history of malignant neoplasm of breast

== ENCOUNTER → 2017-05-12 | Outpatient (CLI) | payer OTHER, MEDICARE | LOC: FIMAGING 14:13 → EDSTATUS 14:15 | PROVIDERS: ATTEND Internal Medicine Critical Care Medicine | DX: R07.9 Chest pain, unspecified (principal); J40 Bronchitis, not specified as acute or chronic ==

== ENCOUNTER → 2017-07-10 | Outpatient (CLI) | payer OTHER, MEDICARE | LOC: FIMAGING 12:50 | PROVIDERS: ATTEND Internal Medicine Critical Care Medicine | DX: Z13.83 Encounter for screening for respiratory disorder NEC (principal) ==

== ENCOUNTER → 2017-10-01 | Outpatient (CLI) | payer OTHER, MEDICARE | LOC: BMCIMAGING 10:51 | PROVIDERS: ATTEND Internal Medicine | DX: Z13.828 Encounter for screening for other musculoskeletal disorder (principal); M79.89 Other specified soft tissue disorders | CPT/HCPCS: 85300-90; 85303-90; 85306-90; 86147-90 ==